=== PATIENT | male | born 1975 | race Caucasian/White ===

== ENCOUNTER 2022-04-09 10:10 | Outpatient (CLI) | payer SELFPAY | END 2022-04-09 10:11 | disposition home or self-care (01) | LOC: CSHLAB 10:10 | PROVIDERS: ATTEND Nurse Practitioner Family | DX: Z20.822 Contact with and (suspected) exposure to COVID-19 (principal); R05.3 Chronic cough | CPT/HCPCS: 87811 ==

== ENCOUNTER 2022-04-14 10:28 | Outpatient (CLI) | payer OTHER | END 2022-04-14 10:29 | disposition home or self-care (01) | LOC: CSHCP 10:28 | PROVIDERS: ATTEND Nurse Practitioner Family | DX: R05.3 Chronic cough (principal); J44.9 Chronic obstructive pulmonary disease, unspecified | CPT/HCPCS: 94010; 94726; 94729; 94760 ==